=== PATIENT | male | born 1935 | race Caucasian/White ===

== ENCOUNTER → 2022-01-18 | Outpatient (CLI) | payer MEDICARE ==
--- NOTE | 2022-01-18 18:33 | RAD ---
XR CHEST 2V INDICATION: COUGH. COMPARISON STUDY: None. FINDINGS: Lungs: Normal lung volume. No pulmonary mass or consolidation. The tracheobronchial tree and hilar st ructures are normal. Pleura: No pleural effusion or pneumothorax. Heart and Mediastinum: The cardiomediastinal silhouette is normal. Tortuous atherosclerotic aorta. Bones: Degenerative changes of the spine. Median sternotomy. IMPRESSION: No acute cardiopulmonary process. Electronically signed by: Adams Mendez MD (01/18/2022 6:30 PM) [facility]
== END ==
LOC: RAD 17:07
PROVIDERS: ATTEND Family Medicine
DX: R05.9 Cough, unspecified (principal); I70.0 Atherosclerosis of aorta; M47.814 Spondylosis without myelopathy or radiculopathy, thoracic region
CPT/HCPCS: 71046

== ENCOUNTER 2022-01-27 00:10 | Emergency (ER) | payer MEDICARE ==
[~2022-01-27] VITALS: Ht 175.3 cm; Wt 79.6 kg
--- NOTE | 2022-01-27 00:53 | PHYS DOC ---
Past History Past Medical History: CAD, Diabetes, Hypertension Past Surgical History: Coronary Bypass Surgery Additional Past Surgical Histo: CABG 2008 General Adult EDM: Chief Complaint: HEAD, FACE, NECK, TRAUMA HPI: HPI: ".. I was drinking a little tonight..earlier.. but... I . tripped and hit my face on the wood stove ...and ripped my face open.. it did not knock me out... but I am a hurting..." Patient is a 87 year old male who presents with above hx and complaints of facial trauma with laceration. Patient denies any loss of consciousness with history of fall. Patient has a laceration starting from the top of his nose bridge diagonally across the left side of his face into his left cheek. Patient has active bleeding from the laceration and the left maxillary area of his face has a large flap of skin that hangs down. Peers have obvious comminuted fracture left lower orbital area and left maxillary. Patient does move all extremities on request. Has a good bite. There is some mild upper neck tenderness. Complains of tenderness on left temporal area. Does have difficulty in closing left eye due to the large laceration and swelling along the laceration line. Patient has past medical history of diabetes, GERD, insomnia, hypertension, hypothyroidism, coronary artery disease, arthritis, and HTN. Patient normally follows with Dr. Brown. Patient advises he did have approximately 6 whiskey drinks tonight. Review of Systems: Review of Systems: Constitutional: Denies fever or chills Eyes: Denies change in visual acuity HENT: Complains of left facial trauma and laceration Respiratory: Denies cough or shortness of breath Cardiovascular: Denies chest pain or edema GI: Denies abdominal pain, nausea, vomiting, bloody stools or diarrhea : Denies dysuria Musculoskeletal: Denies back pain or joint pain Integument: Denies rash Neurologic: Complains of headache,. Denies focal weakness or sensory changes Endocrine: Denies polyuria or polydipsia Lymphatic: Denies swollen glands Psychiatric: Denies depression or anxiety Family History: Family History: Noncontributory to presentation Current Medications: Current Meds: Current Medications Medications (Trade) Dose Ordered Sig/Mulu Start Time Stop Time Status Last Admin Dose Admin Diphtheria/ Tetanus/Acell Pertussis (Boostrix) 0.5 ml ONCE ONCE 01/27/22 01:00 01/27/22 01:01 Lidocaine HCl (Lidocaine 2%) 20 ml 1X ONCE 01/27/22 01:00 01/27/22 01:01 Allergies: Allergies: Allergies Coded Allergies Type Severity Reaction Last Updated Verified No Known Drug Allergies 01/27/22 No Physical Exam: PE: Constitutional: in acute distress, non-toxic appearance. [] HENT: Normocephalic, large gaping left facial laceration that is actively bleeding, bilateral external ears normal, oropharynx moist, no oral exudates, nose mild epistaxis. Eyes: PERRLA, EOMI, conjunctiva injected left eye, no discharge. Reports no double vision. Reports no significant change in his overall vision. No field loss on gross exam. Neck: Normal range of motion, mild upper neck tenderness, supple, no stridor. [] Cardiovascular:Heart rate regular rhythm, no murmur, PMI to left Lungs & Thorax: Bilateral breath sounds equal apex with few scattered wheezes on auscultation [Has] midline CABG scar Abdomen: Bowel sounds normal, soft, no tenderness, no masses, no pulsatile m asses. [] Skin: Warm, dry, no erythema, no rash. Poor turgor Back: No tenderness, no CVA tenderness. [] Extremities: No tenderness, no cyanosis, no clubbing, ROM intact, no edema. [] Neurologic: Alert and oriented X 3, moves all extremities on request, does have distal sensory,, reports no new focal deficits noted. [] Psychologic: Affect anxious judgement normal, mood normal. [] Current Patient Data: Labs: Laboratory Tests Test 01/27/22 00:32 Glucose (Fingerstick) 204 mg/dL (70-99) H Vital Signs: Vital Signs Date Time Temp Pulse Resp B/P (MAP) Pulse Ox O2 Delivery O2 Flow Rate FiO2 01/27/22 00:25 98.5 82 18 138/68 (91) 95 Room Air EKG: EKG: My interpretation EKG shows a sinus rhythm at 81 bpm. Does have an incomplete right bundle branch block. But no findings of acute STEMI of contralateral ch anges. Time of EKG is 00 28 minutes [] Radiology/Procedures: Radiology/Procedures: [] IMAGING REPORT Signed PATIENT: AMANDA AYERS ACCOUNT: [id number] : 1935 LOCATION: ER AGE: 87 SEX: M EXAM STATUS: REG ER ORD. PHYSICIAN: LANDEN CHACON MD REASON: Fall from dizziness, hit face & head on stove, recent sinus infec PROCEDURE: CT MAXILLOFACIAL WO CONTRAST EXAM: CT HEAD WITHOUT IV CONTRAST CLINICAL HISTORY: Reason: Fall from dizziness, hit face head on stove, recent sinus infec / Spl. Instructions: / History: COMPARISON: None. TECHNIQUE: Routine CT of the head without contrast. Soft tissues and bone windows were reviewed. PQRS compliance statement - One or more of the following individualized dose reduction techniques were utilized for this study: 1. Automated exposure control 2. Adjustment of the mA and/or kV according to patient size 3. Use of iterative reconstruction technique FINDINGS: There is no evidence of hemorrhage, mass or extra-axial fluid collection. Renner-white differentiation is maintained with no evidence of edema. Focal low- attenuation in the right frontal region. Additional subcortical, periventricular as well as deep white matter foci of hypoattenuation likely changes of chronic small vessel disease. There is no mass effect or shift of the intracranial structures. The ventricles and cerebral sulci are prominent for the patients stated age consistent with generalized cerebral volume loss. The cerebellum and brainstem are unremarkable. The calvarium demonstrates no evidence of fracture or focal lesion. Soft tissue injury and apparent fracture in the region of the left orbit, see full details below and CT facial bone report. Paranasal sinus opacification as below. The visualized portions of the orbits are normal. IMPRESSION: No evidence for acute intracranial process. Fracture about the left orbit, see facial bones report below. Focal low-attenuation right frontal region. This is nonspecific and may be related to white matter changes. If there is clinical concern for superimposed infarct, MRI can be performed. EXAM: CT CERVICAL SPINE WITHOUT IV CONTRAST CLINICAL HISTORY: Reason: Fall from dizziness, hit face head on stove, recent sinus infec / Spl. Instructions: / History: COMPARISON: None available. TECHNIQUE: Helical CT of the cervical spine was performed. Axial, coronal and sagittal reformatted images were also performed. PQRS compliance statement - One or more of the following individualized dose reduction techniques were utilized for this study: 1. Automated exposure control 2. Adjustment of the mA and/or kV according to patient size 3. Use of iterative reconstruction technique FINDINGS: Vertebral body heights are preserved. Atlantodental degenerative changes are seen. Trace anterolisthesis of C3 on C4. Multilevel facet degenerative changes are seen. No acute fracture. IMPRESSION: 1. Multilevel spondylosis as above 2. Negative acute fracture or subluxation. EXAM: CT facial bones without contrast CLINICAL HISTORY: Reason: Fall from dizziness, hit face head on stove, recent sinus infec / Spl. Instructions: / History: COMPARISON: None available. TECHNIQUE: Helical CT of the face/paranasal sinuses was acquired and axial, coronal and sagittal reformatted images were generated. ---PQRS compliance statement - One or more of the following individualized dose reduction techniques were utilized for this study: 1. Automated exposure control 2. Adjustment of the mA and/or kV according to patient size 3. Use of iterative reconstruction technique--- FINDINGS: Comminuted fracture of the left orbital floor with mild depression. No definite orbital fat herniation or extraocular muscle herniation. In addition there is a comminuted, depressed fracture of the anterior wall of the left maxillary sinus. In addition there is a displaced fracture of the posterior wall of left maxilla ry sinus. Mildly comminuted nasal bone fracture. Layering opacification of the left maxillary sinus with high density component. Right maxillary sinus opacification, layering. The mastoids are unremarkable. The globes, extraocular muscles, optic nerves and retrobulbar fat are normal. Visualized upper aerodigestive tract is normal. Mandible and bilateral temporomandibular joints are normal. IMPRESSION: 1. Comminuted fracture of the left orbital floor, anterior and posterior jimenez of the left maxillary sinus. 2. Mildly comminuted nasal bone fracture. 3. Layering left maxillary sinus opacification with high density component, hemorrhagic products. 4. Opacification right maxillary sinus without definite associated fracture, possibly sinusitis. Electronically signed by: Malik Carroll MD (01/27/2022 1:40 AM) [facility] DICTATED AND SIGNED BY: MALIK CARROLL MD DATE: 01/27/22130 CC: LYNN BROWN MD; LANDEN CHACON MD ~ Heart Score: C/O Chest Pain: N/A Risk Factors: Risk Factors: DM, Current or recent (<one month) smoker, HTN, HLP, family history of CAD, obesity. Risk Scores: Score 0 - 3: 2.5% MACE over next 6 weeks - Discharge Home Score 4 - 6: 20.3% MACE over next 6 weeks - Admit for Clinical Observation Score 7 - 10: 72.7% MACE over next 6 weeks - Early Invasive Strategies Course & Med Decision Making: Course & Med Decision Making Pertinent Labs and Imaging studies reviewed. (See chart for details) Discussed presentation, testing and treatment plan with Dr. Negrito Valenzuela- Trauma Service at . Will accept pt in transfer- Advised to just approximate wound edges after irrigation, start on antibiotics. Will needed further plastic/ ENT eval. and definitive repair. Procedure Note-wound care-left facial laceration-irrigated with normal saline. Injected edges of laceration with 2% lidocaine. Did repeat irrigation of laceration with 1 L of normal saline. Approximated the edges of wound with use of 3-0 Vicryl- 8 simple sutures -to reduce bleeding and cover exposed f racture and contused tissue. Applied erythromycin ophthalmic ointment applied to left cornea to prevent area drying out-patient and cover corneal abrasion.( has difficulty in closing eyes due to gaping laceration and edema). (Will needed plastic or definitive closure. May needed surgical repair of fractured maxillary sinus and orbit.) Impression: 1. Trip and Fall 2. 16 cm laceration mid nasal into Lt. cheek 3. Comminuted fracture of left orbit floor, anterior and posterior jimenez of left maxillary sinus 4. Nasal fracture 5. Left maxillary sinus filled with blood, right maxillary sinus possible fracture and sinusitis 6. Head injury 7. Anemia 12.8 hemoglobin 8. Renal insufficiency creatinine 1.5 9. Diabetes glucose 203 10. Hypomagnesium 1.4 11. Alcohol 1169 12. Mild elevation D-dimer 0.76 [] Rex Disclaimer: Rex Disclaimer: This electronic medical record was generated, in whole or in part, using a voice recognition dictation system. Departure Departure: Referrals: LYNN BROWN MD (PCP) Dragon Disclaimer This chart was dictated in whole or in part using Voice Recognition software in a busy, high-work load, and often noisy Emergency Department environment. It may contain unintended and wholly unrecognized errors or omissions. Dragon Disclaimer This chart was dictated in whole or in part using Voice Recognition software in a busy, high-work load, and often noisy Emergency Department environment. It may contain unintended and wholly unrecognized errors or omissions. LANDEN CHACON MD Jan 27, 2022 00:53
[2022-01-27] MEDS ORDERED: LIDOCAINE 2% 20 ML VIAL. IJ ONE (01:00)
[2022-01-27] MEDS ORDERED: DIPHTH,PERTUSS(ACELL),TET TOX 0.5 ML DISP.SYRIN. VAX IM ONE (01:00)
[2022-01-27 01:16] LABS: CALCIUM 9.3 mg/dL (8.5-10.1); CREATININE 1.5 mg/dL (0.7-1.3); GFR 44.4
[2022-01-27 01:29] LABS: ALBUMIN 3.4 g/dL (3.4-5.0); DIRECT BILIRUBIN 0.1 mg/dL (0.0-0.2); MAGNESIUM 1.4 mg/dL (1.8-2.4); TOTAL BILIRUBIN 0.2 mg/dL (0.2-1.0); TOTAL PROTEIN 7.4 g/dL (6.4-8.2)
[2022-01-27] MEDS ORDERED: MIRT45TA53 PO (01:29)
[2022-01-27] MEDS ORDERED: CHOL10004 PO (01:29)
[2022-01-27] MEDS ORDERED: FLUO20CA22 PO (01:29)
[2022-01-27] MEDS ORDERED: LEVO50TA5 PO (01:29)
[2022-01-27] MEDS ORDERED: CLON0.5T4 PO (01:29)
[2022-01-27] MEDS ORDERED: MULT-245 PO (01:29)
[2022-01-27] MEDS ORDERED: INSU100I13 SQ (01:29)
[2022-01-27] MEDS ORDERED: CYAN50009 PO (01:29)
[2022-01-27] MEDS ORDERED: OMEP20TA91 PO (01:29)
[2022-01-27] MEDS ORDERED: BUSP10TA PO (01:29)
[2022-01-27] MEDS ORDERED: ASPI-630 PO (01:29)
[2022-01-27] MEDS ORDERED: INSU100C4 SQ (01:29)
[2022-01-27] MEDS ORDERED: METF500T16 PO (01:29)
[2022-01-27] MEDS ORDERED: ATOR40TA59 PO (01:29)
--- NOTE | 2022-01-27 01:42 | RAD ---
EXAM: CT HEAD WITHOUT IV CONTRAST CLINICAL HISTORY: Reason: Fall from dizziness, hit face head on stove, recent sinus infec / Spl. In structions: / History: COMPARISON: None. TECHNIQUE: Routine CT of the head without contrast. Soft tissues and bone windows were reviewed. PQRS compliance statement - One or more of the following individualized dose reduction techniques wer e utilized for this study: 1. Automated exposure control 2. Adjustment of the mA and/or kV according to patient size 3. Use of iterative reconstruction technique FINDINGS: There is no evidence of hemorrhage, mass or extra-axial fluid collection. Renner-white differentiation is maintained with no evidence of edema. Focal low-attenuation in the righ t frontal region. Additional subcortical, periventricular as well as deep white matter foci of hypoat tenuation likely changes of chronic small vessel disease. There is no mass effect or shift of the intracranial structures. The ventricles and cerebral sulci are prominent for the patients stated age consistent with generaliz ed cerebral volume loss. The cerebellum and brainstem are unremarkable. The calvarium demonstrates no evidence of fracture or focal lesion. Soft tissue injury and apparent f racture in the region of the left orbit, see full details below and CT facial bone report. Paranasal sinus opacification as below. The visualized portions of the orbits are normal. IMPRESSION: No evidence for acute intracranial process. Fracture about the left orbit, see facial bones report below. Focal low-attenuation right frontal region. This is nonspecific and may be related to white matter ch anges. If there is clinical concern for superimposed infarct, MRI can be performed. EXAM: CT CERVICAL SPINE WITHOUT IV CONTRAST CLINICAL HISTORY: Reason: Fall from dizziness, hit face head on stove, recent sinus infec / Spl. In structions: / History: COMPARISON: None available. TECHNIQUE: Helical CT of the cervical spine was performed. Axial, coronal and sagittal reformatted im ages were also performed. PQRS compliance statement - One or more of the following individualized dose reduction techniques wer e utilized for this study: 1. Automated exposure control 2. Adjustment of the mA and/or kV according to patient size 3. Use of iterative reconstruction technique FINDINGS: Vertebral body heights are preserved. Atlantodental degenerative changes are seen. Trace anterolisthe sis of C3 on C4. Multilevel facet degenerative changes are seen. No acute fracture. IMPRESSION: 1. Multilevel spondylosis as above 2. Negative acute fracture or subluxation. EXAM: CT facial bones without contrast CLINICAL HISTORY: Reason: Fall from dizziness, hit face head on stove, recent sinus infec / Spl. In structions: / History: COMPARISON: None available. TECHNIQUE: Helical CT of the face/paranasal sinuses was acquired and axial, coronal and sagittal refo rmatted images were generated. ---PQRS compliance statement - One or more of the following individualized dose reduction techniques were utilized for this study: 1. Automated exposure control 2. Adjustment of the mA and/or kV according to patient size 3. Use of iterative reconstruction technique--- FINDINGS: Comminuted fracture of the left orbital floor with mild depression. No definite orbital fat herniatio n or extraocular muscle herniation. In addition there is a comminuted, depressed fracture of the ante rior wall of the left maxillary sinus. In addition there is a displaced fracture of the posterior wal l of left maxillary sinus. Mildly comminuted nasal bone fracture. Layering opacification of the left maxillary sinus with high density component. Right maxillary sinus opacification, layering. The mastoids are unremarkable. The globes, extraocular muscles, optic nerves and retrobulbar fat are normal. Visualized upper aerodigestive tract is normal. Mandible and bilateral temporomandibular joints are normal. IMPRESSION: 1. Comminuted fracture of the left orbital floor, anterior and posterior jimenez of the left maxillary sinus. 2. Mildly comminuted nasal bone fracture. 3. Layering left maxillary sinus opacification with high density component, hemorrhagic products. 4. Opacification right maxillary sinus without definite associated fracture, possibly sinusitis. Electronically signed by: Malik Zhang MD (01/27/2022 1:40 AM) NADIA
[2022-01-27 01:45] LABS: BASO # 0.1 x10^3/uL (0.0-0.2); BASO % 1 % (0-3); EOS # 0.2 x10^3/uL (0.0-0.7); EOS % 3 % (0-3); HEMATOCRIT 37.5 % (39.0-53.0); HEMOGLOBIN 12.8 g/dL (13.0-17.5); LYMPH # 2.8 x10^3/uL (1.0-4.8); LYMPH % 28 % (24-48); MEAN CORPUSCULAR HEMOGLOBIN 32 pg (25-35); MEAN CORPUSCULAR HGB CONC 34 g/dL (31-37); MEAN CORPUSCULAR VOLUME 95 fL (79-100); MONO # 0.7 x10^3/uL (0.0-1.1); MONO % 7 % (0-9); NEUT # 6.1 x10^3uL (1.8-7.7); NEUT % 62 % (31-73); PLATELET COUNT 344 x10^3/uL (140-400); RED BLOOD COUNT 3.96 x10^6/uL (4.30-5.70); RED CELL DISTRIBUTION WIDTH 13.6 % (11.5-14.5); WHITE BLOOD COUNT 9.8 x10^3/uL (4.0-11.0)
--- NOTE | 2022-01-27 01:52 | RAD ---
EXAM: AP View of the chest DATE: 01/27/2022 1:03 AM INDICATION: Reason: Fall from dizziness, recent sinus infection / Spl. Instructions: / History: COMPARISON: 01/18/2022 FINDINGS: The heart is not enlarged. Mediastinal and hilar contours are normal. Patchy opacities peripheral right midlung No pleural effusion or pneumothorax. IMPRESSION: Patchy opacities peripheral right midlung likely atelectasis or consolidative process such as pneumon ia. Imaging follow-up to resolution is recommended. This is new compared to 01/18/2022 Electronically signed by: Malik Zhang MD (01/27/2022 1:50 AM) NADIA
[2022-01-27] MEDS ORDERED: IV NORMAL SALINE 50ML 50 ML ONE (02:28)
[2022-01-27] MEDS ORDERED: cefTRIAXone IM 1 GM VIAL IM ONE (02:30)
[2022-01-27 02:53] VITALS: BP 137/72
[2022-01-27] MEDS ORDERED: ERYTHROMYCIN 0.5% OPHTH OINTMENT 1GM TUBE. ONE (02:55)
[2022-01-27] MEDS ORDERED: ERYTHROMYCIN 0.5% OPHTH OINTMENT 1GM TUBE. OD ONE (03:30)
[2022-01-27] MEDS ORDERED: MORPHINE SULFATE 10 MG/ML SYRINGE. SQ ONE (04:00)
--- NOTE | 2022-01-27 06:41 | EKG ---
[address] [address] Test Date: 2022-01-27 Test Time: 00:28:08 Pat Name: AMANDA AYERS Department: Room: Gender: M Dock Pumper: : 1935 Requested By: LANDEN CHACON Order Number: [id number] Reading MD: Spencer Pacheco Measurements Intervals [place] Rate: 81 P: 38 CT: 148 QRS: 4 QRSD: 102 T: 42 QT: 382 QTc: 444 Interpretive Statements SINUS RHYTHM INCOMPLETE RIGHT BUNDLE BRANCH BLOCK Electronically Signed On 01-29-2022 13:36:45 CDT by Spencer Pacheco
== END 2022-01-27 04:10 | disposition short-term general hospital (02) ==
LOC: ER 00:10
DX: S02.32XA Fracture of orbital floor, left side, initial encounter for closed fracture (principal); S02.40DA Maxillary fracture, left side, initial encounter for closed fracture; S02.2XXA Fracture of nasal bones, initial encounter for closed fracture; S01.81XA Laceration without foreign body of other part of head, initial encounter; D64.9 Anemia, unspecified; N28.9 Disorder of kidney and ureter, unspecified; E11.9 Type 2 diabetes mellitus without complications; E83.42 Hypomagnesemia; R79.1 Abnormal coagulation profile; K21.9 Gastro-esophageal reflux disease without esophagitis; I10 Essential (primary) hypertension; E03.9 Hypothyroidism, unspecified; M19.90 Unspecified osteoarthritis, unspecified site; I25.810 Atherosclerosis of coronary artery bypass graft(s) without angina pectoris; W01.198A Fall on same level from slipping, tripping and stumbling with subsequent striking against other object, initial encounter; Y93.89 Activity, other specified; Y92.89 Other specified places as the place of occurrence of the external cause; Y99.8 Other external cause status
CPT/HCPCS: 12016; 36415; 70450; 70486; 71045; 72125; 80048; 80076; 82550; 82947; 83690; 83735; 83880; 84443; 84484; 85025; 85379; 85610; 85730; 90471; 90715; 93005; 96372; 99285; G0480; J0696; J2270